=== PATIENT | male | born 1950 | race Caucasian/White ===

== ENCOUNTER 2019-03-06 18:55 | Inpatient (IN) | payer MEDICARE ==
[2019-03-07] MEDS: Multivitamin w/ Minerals Tab PO SCH (09:07)
[2019-03-07] MEDS ORDERED: Magnesium Hydroxide (MOM) 30 mL UDC PO PRN (14:02)
[2019-03-07] MEDS ORDERED: Permethrin 1% Rinse 60 mL Bottle TP ONE (14:54)
[2019-03-07] MEDS: Silver Antimicrobial Wound Gel 0.25 oz Tube TP SCH (17:30)
[2019-03-07] MEDS: Non-Formulary Item 1 EA (Fluticasone/Salmeterol [Advair 250-50 Diskus] 1 PUFF) IH SCH (18:00)
[2019-03-07] MEDS: Calcium Carb/Vit D 500 mg/200 U Tab PO SCH (18:00)
--- NOTE | 2019-03-08 08:45 | History and Physical ---
History of Present Illness - HPI Chief Complaint: Patient had increase in agitation. HPI: Patient was send fron SNF to evaluation due to increased in agitation. Vital Signs: Last Vital Signs Temp 97.7 F 03/08/19 06:10 Pulse 95 03/08/19 06:10 Resp 20 03/08/19 06:10 BP 125/72 03/08/19 06:10 Pulse Ox 99 03/08/19 06:10 Past Medical History Cardiovascular: Report: CAD Pulmonary: Report: No Pertinent Hx EXERCISE SCIENTIST: Report: No Pertinent Hx GI: Report: No Pertinent Hx Psych: Report: Psychosis, Schizophrenia Musculoskeletal: Report: Weakness, Other (Patient has Hx of femur fracture) Rheumatologic: Report: No pertinent Hx Infectious Disease: Report: No Pertinent Hx Renal/: Report: No Pertinent Hx Endocrine: Report: No Pertinent Hx Dermatology: Report: No Pertinent Hx - Past Surgical History Past Surgical History: Other (There is Hx of hip surgery repair.) Family Medical History - Family Member Mother History Unknown: Yes Social History Smoke: No Alcohol: None Drugs: None Lives: Shelter Domestic Violence: Negative - Medications Home Medications: Home Medication Medication Instructions Recorded Type Acetaminophen [Tylenol] 650 mg PO Q4HR PRN 03/07/19 History Acetaminophen [Tylenol] 650 mg PO Q4HR PRN 03/07/19 History Ascorbic Acid [Vitamin C] 500 mg PO BID 03/07/19 History Calcium Carb/Vit D 500mg/200U 500 mg PO BID 03/07/19 History [Oscal w/Vitamin D] Docusate Sodium [Colace] 100 mg PO DAILY 03/07/19 History Fluticasone/Salmeterol [Advair 1 puff IH BID 03/07/19 History 250-50 Diskus] Ibuprofen 600 mg PO Q6HR PRN 03/07/19 History Magnesium Hydroxide [Milk of 30 ml PO DAILY PRN 03/07/19 History Magnesia] Risperidone [Risperdal] 1 mg PO Q12HR 03/07/19 History - Allergies Allergies/Adverse Reactions: Allergies Allergy/AdvReac Type Severity Reaction Status Date / Time No Known Allergies Allergy Unverified 03/07/19 03:23 Review of Systems - Review of Systems Constitutional: Report: No Significant Eyes: Report: No Significant ENT: Report: No Significant Respiratory: Report: No Significant Cardiovascular: Report: No Significant Gastrointestinal: Report: No Significant Genitourinary: Report: No Significant Musculoskeletal: Report: Leg Pain Skin: Report: No Significant Neurological: Report: Weakness Physical Exam - Physical Exam HEENT: Report: Ears Nose Throat within normal limits Neck: Report: Within normal limits Cardiovascular Systems: Report: Regular, Rate and Rhythm Respiratory: Report: Breath Sounds are within normal limits Abdomen: Report: Non-tender to palpation Back: Report: Inspection of back is within normal limits. Extremities: Report: Non-tender to palpation., Other (Unstable gait) Skin: Report: Color of skin is within normal limits Neuro/Psych: Report: Disoriented to name time or place - Assessment Assessment: Patient is awake, alert, calm confused, in no acute distress. Dx Psychosis, S/ P hip surgery repair. - Plan Plan: Patient is follow by Psychiatry, he is continue with home meds, Labs are requested.
[2019-03-08] MEDS: Multivitamin w/ Minerals Tab PO SCH (09:28)
[2019-03-08] MEDS: Calcium Carb/Vit D 500 mg/200 U Tab PO SCH ×2 (09:29→17:49)
[2019-03-08] MEDS: Silver Antimicrobial Wound Gel 0.25 oz Tube TP SCH (09:30)
[2019-03-08] MEDS: Non-Formulary Item 1 EA (Fluticasone/Salmeterol [Advair 250-50 Diskus] 1 PUFF) IH SCH ×2 (10:00→17:49)
--- NOTE | 2019-03-08 10:13 | Psychiatric Evaluation ---
DATE OF SERVICE: 03/07/2019 IDENTIFYING DATA: The patient is a 68-year-old male, resident of [facility] in [place]. Information obtained by directly interviewing the patient as well as reviewing the admission papers. The patient is admitted for his acute agitation and paranoid delusions. The patient is reported to have been very aggressive. I have reviewed the chart and spoke to the staff and interviewed the patient. During the interview, the patient is screaming and yelling at the staff nurse. The patient has no insight. The patient is going on a tangent. The patient has not been able to provide much of any information. The patient has been verbally aggressive earlier and has been given a dose of Risperdal. PAST PSYCHIATRIC HISTORY: The patient is being followed by Dr. Barrett on an outpatient basis. MEDICAL HISTORY AND PHYSICAL EXAMINATION: Requested by Dr. Delgado and is significant for left hip fracture and the patient has COPD, hypertension, history of encephalopathy and schizophrenia. Gait is noted to be abnormal and the patient has been wheelchair bound at this time. SUBSTANCE ABUSE HISTORY: Details about substance abuse history are not known. SOCIAL HISTORY: The patient is a resident of the [facility] in [place]. The patient is stating that he does not have any family members. STRENGTH AND ASSETS: The patient is motivated. MENTAL STATUS EXAMINATION: The patient is a 68-year-old, looking his stated age, superficially cooperative. The patient is getting easily irritable and angry during the interview. Insight and judgment at this time are noted to be still impaired. Impulse control is noted to be limited. Coping skills are noted to be limited. The patient has paranoia, but denies any command hallucinations. The patient goes on a tangent talks about an injection that lasted for 1 year and feels that lasted for 3 years. The patient is not making much sense. The patient is alert and aware that he is in the hospital. Attention span and concentration are noted to be poor. DIAGNOSTIC IMPRESSION: AXIS I: The patient's behavior is a danger to others. The patient is reported to have been agitated, screaming and yelling at the staff members. The patient's short and long-term memory noted to be very poor. DIAGNOSTIC IMPRESSION: AXIS I: Schizophrenia, chronic paranoid type with acute exacerbation. AXIS II: None. AXIS III: As per Dr. Delgado. IMMEDIATE TREATMENT PLAN: The patient is going to be continued on the Risperdal as 1 mg b.i.d. and the patient is also going to be placed on the Trileptal for his mood swings and the patient is going to be followed up with the supportive therapy. JOB# [id number]
--- NOTE | 2019-03-09 04:08 | Progress Notes ---
DATE: 03/08/2019 PSYCHIATRIC PROGRESS NOTE SUBJECTIVE: Staff was spoken to. The patient is interviewed. The patient continues to be dysphoric. Insight and judgment are noted to be still impaired. Impulse control is noted to be limited. Coping skills are noted to be limited. The patient is getting easily irritable. No side effects to the medications are noted. The patient is currently on oxcarbazepine 150 mg twice a day along with risperidone 1 mg twice a day. Continues to be very paranoid. The patient has no insight into his illness. The patient is getting easily frustrated with the staff members. ASSESSMENT: The patient is still grossly psychotic and impulsive. PLAN: To increase the dose on the Risperdal to 2 mg twice a day and follow the patient with the supportive therapy. JOB# [id number]
[2019-03-09] MEDS: Calcium Carb/Vit D 500 mg/200 U Tab PO SCH ×2 (08:05→16:11)
[2019-03-09] MEDS: Multivitamin w/ Minerals Tab PO SCH (08:06)
[2019-03-09] MEDS: Silver Antimicrobial Wound Gel 0.25 oz Tube TP SCH (08:11)
[2019-03-09] MEDS: Albuterol Nebulizer 2.5mg/3mL HHN SCH ×2 (12:10→18:10)
[2019-03-09] MEDS: Budesonide 0.5 Mg/2 mL Ud HHN SCH ×2 (12:10→18:10)
[2019-03-10] MEDS: Albuterol Nebulizer 2.5mg/3mL HHN SCH ×4 (00:10→18:56)
[2019-03-10] MEDS: Budesonide 0.5 Mg/2 mL Ud HHN SCH ×4 (00:10→18:56)
--- NOTE | 2019-03-10 01:09 | Progress Notes ---
DATE: 03/09/2019 PSYCHIATRIC PROGRESS NOTE SUBJECTIVE: Staff was spoken to. The patient is interviewed. Mood is noted to be irritable. Affect is constricted. The patient continues to be paranoid. Insight and judgment are noted to be still impaired. Impulse control seems to be limited. No side effects to the medications are noted. The patient has been able to tolerate the medication so far. Aggressive behavior seems to be coming under control. ASSESSMENT: The patient is still paranoid. PLAN: To continue the patient with the current medications and followup. JOB# [id number]
[2019-03-10] MEDS: Multivitamin w/ Minerals Tab PO SCH (08:39)
[2019-03-10] MEDS: Calcium Carb/Vit D 500 mg/200 U Tab PO SCH ×2 (08:39→16:42)
[2019-03-10] MEDS: Silver Antimicrobial Wound Gel 0.25 oz Tube TP SCH (09:50)
--- NOTE | 2019-03-10 20:41 | Consultation ---
DATE OF CONSULTATION: 03/09/2019 REFERRING PHYSICIAN: Aedlita Ibarra MD TYPE OF CONSULTATION: Psychology. HISTORY OF PRESENT ILLNESS: The patient is a 68-year-old male. The following is by review of the medical record and by the patient's self report. The patient is a resident of an [facility] in [place]. The patient is being admitted due to acute agitation and paranoid delusions. The staff at the patient's facility report that he has been very aggressive with screaming and yelling episodes at the staff. Upon interview, the patient is going off on a tangent and very difficult to cognitively redirect as well as difficult to deescalate. The patient is presenting as verbally aggressive. The patient provided limited answers to questions for the rest of this initial clinical interview. PAST MEDICAL HISTORY: Please see history and physical by Dr. Delgado. PAST PSYCHIATRIC HISTORY: The patient is under the care of Dr. Esteban Barrett at his facility. The patient has a history of aggressive behavior as well as schizophrenia. The patient has had multiple previous hospitalizations. It is unknown if the patient is also under the care of a psychologist. SUBSTANCE ABUSE HISTORY: Details are unknown. The patient did not answer these questions. Records do not indicate a substance abuse history; however, this needs further evaluation. PSYCHOSOCIAL HISTORY: The patient is a resident of an [facility] in [place]. The patient states he has no support and no family members that he can contact. The patient states he is single with no children. The patient states he has a friend named Que that is involved in his care. The patient admits that he has a history of homelessness as well. He did not answer questions about occupational or educational history or [employer] affiliation. The patient did not answer the question if he desires to return to his previous placement. MENTAL STATUS EXAMINATION: The patient appears to be his stated age. The patient's attitude is guarded and suspicious and mostly uncooperative. Speech is loud. The patient's eye contact is poor. Mood is irritable and angry. Affect is mood reactive and constricted. The patient is getting easily irritated answering the clinical interview questions. The patient denied any suicidal ideation, plan or intention. He denied any command hallucinations, i.e. any auditory hallucinations. The patient is markedly tangential and is difficult to cognitively redirect. The patient is not making much sense at times. There is evidence of possible paranoid ideation, this needs further evaluation. The patient's behavior is easily agitated and impulsive. Impulse control is inadequate. The patient did not participate in the memory assessment. It appears the patient's immediate and short term memory are impaired. Long-term memory needs further evaluation. The patient was not responding to the clinical questions at this point. The patient did not participate in interpretation of proverbs. Sensorium is alert and oriented to self and place only. Concentration is poor. The patient was unable to be cognitively redirected and was unable to sustain focus and attention. The patient appears to possibly be a danger to others. The patient continues to have yelling episodes on the unit according to the staff. The patient's insight is impaired. Judgment is impaired. DIAGNOSTIC IMPRESSION AXIS I: History of schizophrenia, chronic, paranoid type, with acute exacerbation. AXIS II: None. AXIS III: Per Dr. Delgado. TREATMENT PLAN: The patient has been seen by Dr. Ibarra for psychiatric evaluation and for the management of the patient's psychotropic medications. We will provide supportive psychotherapy to include reality orientation, reality differentiation and reality integration. We will provide de-escalation to reduce the patient's agitation and increase the patient's impulse control. We will provide motivational enhancement for the patient to verbalize his concerns versus verbally acting out and behaviorally acting out. The patient appears to be having some mood swings. We will provide the patient the opportunity to verbally contract for safety and to follow through with staff direction. We will provide coping strategies for chronic severe mental illness as well as for phase of life issues. DISCHARGE CRITERIA: When the patient no longer a threat to others and is compliant with his medication and care plan. Thank you, Dr. Ibarra for this consult and the opportunity to participate in this patient's care. JOB# [id number] FIFI
--- NOTE | 2019-03-10 21:20 | Progress Notes ---
DATE: 03/10/2019 PSYCHIATRIC PROGRESS NOTE SUBJECTIVE: Staff was spoken to. The patient is interviewed. Mood is noted to be less irritable compared to the time that he came in. Insight and judgment are noted to be still impaired. The patient's mood swings are coming under control. The patient is currently on Risperdal and oxcarbazepine and has been able to tolerate the medications. No side effects to the medications are noted so far. ASSESSMENT: The patient is still impulsive and psychosis, but the aggressive behavior seems to be coming under control. PLAN: To continue the patient with the supportive therapy and followup. JOB# [id number]
[2019-03-11] MEDS: Albuterol Nebulizer 2.5mg/3mL HHN SCH ×4 (00:38→17:06)
[2019-03-11] MEDS: Budesonide 0.5 Mg/2 mL Ud HHN SCH ×4 (00:38→17:06)
[2019-03-11] MEDS: Calcium Carb/Vit D 500 mg/200 U Tab PO SCH ×2 (08:57→16:28)
[2019-03-11] MEDS: Multivitamin w/ Minerals Tab PO SCH (08:57)
[2019-03-11] MEDS: Silver Antimicrobial Wound Gel 0.25 oz Tube TP SCH ×2 (09:02→12:49)
--- NOTE | 2019-03-11 15:29 | Progress Notes ---
DATE: 03/11/2019 PSYCHIATRIC PROGRESS NOTE SUBJECTIVE: Staff was spoken to. The patient is interviewed. Mood is noted to be irritable. Affect is constricted. Mood swings are still a problem. Insight and judgment are noted to be still impaired. The patient has been able to ambulate, but the patient compared to the beginning of the paranoia is coming down, but the patient is still having outbursts. No side effects to the medications are noted at this time. The patient is able to tolerate the Trileptal and the Risperdal. ASSESSMENT: The patient is still psychotic and impulsive. PLAN: To continue the patient with the supportive therapy and followup. JOB# [id number]
[2019-03-12] MEDS: Albuterol Nebulizer 2.5mg/3mL HHN SCH ×4 (00:20→17:01)
[2019-03-12] MEDS: Budesonide 0.5 Mg/2 mL Ud HHN SCH ×4 (00:20→17:01)
[2019-03-12] MEDS: Silver Antimicrobial Wound Gel 0.25 oz Tube TP SCH (08:01)
[2019-03-12] MEDS: Calcium Carb/Vit D 500 mg/200 U Tab PO SCH ×2 (08:02→16:20)
[2019-03-12] MEDS: Multivitamin w/ Minerals Tab PO SCH (08:02)
[2019-03-12 16:08] VITALS: BP 139/88
[2019-03-13] MEDS: Budesonide 0.5 Mg/2 mL Ud HHN SCH ×4 (01:00→17:35)
[2019-03-13] MEDS: Albuterol Nebulizer 2.5mg/3mL HHN SCH ×4 (01:00→17:35)
--- NOTE | 2019-03-13 01:24 | Progress Notes ---
DATE: 03/12/2019 PSYCHOLOGY PROGRESS NOTE SUBJECTIVE: The patient is seen up in his wheelchair in his room. Chart is reviewed. Case is discussed with staff. The patient presents as irritable. Staff reports the patient continues to have mood swings and verbal aggressive outbursts. The patient also continues to verbalize suspiciousness. OBJECTIVE: Mood is irritable. Affect is constricted. Thought process includes possible paranoid ideation. The patient denies any hallucinations or delusions. The patient's behavior includes intermittent verbal anger outbursts and is guarded and suspicious. ASSESSMENT AND PLAN: The patient's psychosis and impulsivity persist. The patient is compliant with his medication. PLAN: We will continue supportive psychotherapy. The patient is continued on Trileptal and Risperdal according to the attending psychiatrist. We will provide de-escalation and encourage the patient to calmly verbalize his concerns and demonstrate appropriate behavior. We will provide conflict resolution and brief solution focused therapy for the patient to be able to increase his problem solving ability and become compliant and stay compliant with his care and treatment. We will provide reality testing, orientation and integration. We will provide coping strategies for phase of life issues as well chronic severe mental illness. We will follow up in 2-3 days to continue the present treatment if the patient remains admitted on the unit and is able to demonstrate the capacity to benefit from Psychology Services. JOB# [id number] FIFI
--- NOTE | 2019-03-13 01:37 | Progress Notes ---
DATE: 03/12/2019 PSYCHIATRIC PROGRESS NOTE SUBJECTIVE: Staff was spoken to. The patient is interviewed. Mood is noted to be less irritable compared to the time that he came in. Insight and judgment at this time are noted to be still impaired. Impulse control seems to be improving. No side effects to the medications are noted. The patient at this time has no family contact. The ed case manager has been trying to touch base with extended care facility for further disposition issues. PLAN: Please note that the patient is still having problems with the placement, closely monitor the patient for psychosis and followup. JOB# [id number]
[2019-03-13] MEDS: Multivitamin w/ Minerals Tab PO SCH (08:44)
[2019-03-13] MEDS: Calcium Carb/Vit D 500 mg/200 U Tab PO SCH ×2 (08:44→17:35)
[2019-03-13] MEDS: Silver Antimicrobial Wound Gel 0.25 oz Tube TP SCH (09:10)
--- NOTE | 2019-03-13 23:42 | Progress Notes ---
DATE: 03/13/2019 SUBJECTIVE: Staff was spoken to. The patient is interviewed. Chart is reviewed. The patient continues to be very agitated and has been using lot of profanities. There have been acute mood swings. Insight and judgment are noted to be very much impaired. Impulse control is noted to be limited. The patient is currently on Trileptal and Risperdal. PLAN: To increase the dose on the Trileptal to 300 mg twice a day and continue the Risperdal 2 mg twice a day and followup. JOB# [id number]
[2019-03-14] MEDS: Budesonide 0.5 Mg/2 mL Ud HHN SCH ×4 (00:30→18:00)
[2019-03-14] MEDS: Albuterol Nebulizer 2.5mg/3mL HHN SCH ×4 (00:30→18:00)
[2019-03-14] MEDS: Calcium Carb/Vit D 500 mg/200 U Tab PO SCH ×2 (08:44→17:11)
[2019-03-14] MEDS: Multivitamin w/ Minerals Tab PO SCH (08:45)
[2019-03-14] MEDS: Silver Antimicrobial Wound Gel 0.25 oz Tube TP SCH (08:49)
[2019-03-15] MEDS: Albuterol Nebulizer 2.5mg/3mL HHN SCH ×4 (00:09→18:20)
[2019-03-15] MEDS: Budesonide 0.5 Mg/2 mL Ud HHN SCH ×4 (00:10→18:13)
[2019-03-15] MEDS: Calcium Carb/Vit D 500 mg/200 U Tab PO SCH ×2 (08:12→16:25)
[2019-03-15] MEDS: Multivitamin w/ Minerals Tab PO SCH (08:12)
--- NOTE | 2019-03-15 09:50 | Progress Notes ---
DATE: 03/14/2019 PSYCHIATRIC PROGRESS NOTE SUBJECTIVE: Staff was spoken to. The patient is interviewed. Mood is noted to be irritable. Affect is constricted. Insight and judgment at this time are noted to be still impaired. Insight and judgment are noted to be improving. Impulse control seems to be fair. The patient's aggressive behavior has been coming down. The patient has been able to tolerate the medications. No side effects to the medications are noted. The patient is motivated to seek treatment. ASSESSMENT: The patient is stabilizing. PLAN: To continue the patient with the current medications and possibly discharge the patient to the placement tomorrow. JOB# [id number]
--- NOTE | 2019-03-15 09:57 | Progress Notes ---
DATE: 03/15/2019 PSYCHIATRIC PROGRESS NOTE SUBJECTIVE: Staff was spoken to. The patient is interviewed. Mood is noted to be anxious. The patient is stating that the human services case manager has spoken to him, someone came to visit and he states that another lady is going over there once they accept his case. The patient at this time is willing to comply with the treatment. No side effects to the medications are noted. The patient is less aggressive. Insight and judgment at this time are noted to be improving. Impulse control seems to be improving at this time. No side effects to the medications are noted. ASSESSMENT: The patient is stabilizing. PLAN: Plan to see if we can discharge the patient to the correction facility tomorrow. JOB# [id number]
--- NOTE | 2019-03-15 12:23 | Progress Notes ---
DATE: 03/14/2019 PSYCHOLOGY PROGRESS NOTE SUBJECTIVE: The patient is seen in the dining and activity area. The patient is undergoing his O2 treatment. Staff reports the patient has been compliant with his medication and has had no recent verbal outbursts. The patient seems to be more redirectable. The patient's insight is still poor with respect to his illness, but his aggressive behavior has been lessening. OBJECTIVE: Mood is mildly irritable. Mood swings are lessening. Affect is reactive. Thought process shows to be guarded, but generally goal oriented. The patient has a tendency to become tangential, but is cognitively redirectable at times. The patient denied any hallucinations or delusions. The patient's behavior is more goal oriented. ASSESSMENT: The patient seems to be stabilizing as of this visit and according to staff. PLAN: We provided coping strategies for phase of life issues. We provided positive reinforcement for the patient's compliance with his care and treatment. We provided remotivation for the patient to continue responding to staff direction as well as complying with treatment suggestions and recommendations. We will follow up in 2-3 days if the patient is still admitted on the unit. JOB# [id number] FIFI
[2019-03-15] MEDS: Silver Antimicrobial Wound Gel 0.25 oz Tube TP SCH (16:20)
[2019-03-16] MEDS: Albuterol Nebulizer 2.5mg/3mL HHN SCH ×2 (00:06→05:12)
[2019-03-16] MEDS: Budesonide 0.5 Mg/2 mL Ud HHN SCH ×2 (00:27→05:37)
[2019-03-16] MEDS: Multivitamin w/ Minerals Tab PO SCH (08:11)
[2019-03-16] MEDS: Calcium Carb/Vit D 500 mg/200 U Tab PO SCH ×2 (08:11→16:07)
[2019-03-16] MEDS: Silver Antimicrobial Wound Gel 0.25 oz Tube TP SCH (08:12)
[2019-03-16] MEDS ORDERED: Albuterol Nebulizer 2.5mg/3mL HHN SCH (13:00)
[2019-03-16] MEDS ORDERED: Budesonide 0.5 Mg/2 mL Ud HHN SCH (13:15)
--- NOTE | 2019-03-16 18:17 | Discharge Summary ---
DATE OF DISCHARGE: 03/16/2019 IDENTIFYING DATA: The patient is a 68-year-old male, resident of an [facility] in [place]. Information obtained by directly interviewing the patient as well as reviewing the admission papers. JUSTIFICATION OF HOSPITALIZATION: The patient is admitted for acute agitation and paranoid delusions and aggressive behavior. CHIEF COMPLAINT: "I don't need to talk to anyone, you know the story." HISTORY OF PRESENT ILLNESS: This is the first psychiatric hospitalization to [facility] for this patient who is reported to have been a resident of [facility]. The patient is reported to have been very aggressive and has been making sexual comments and also has been very intrusive. The patient could not be contained at a lower level of care and the patient has to be brought over here for stabilization. Physical examination done at the time of admission was requested to be done by Dr. Esposito, that is noted to be significant for COPD, hypertension, and history of encephalopathy. HOSPITAL COURSE AND RESPONSE TO TREATMENT: The patient has been observed on inpatient unit, provided with supportive psychotherapy. The patient has been placed on routine p.r.n. doses of medications along with that one he has been given the oxcarbazepine that was gradually increased to 300 mg twice a day. Risperdal was given 2 mg twice a day. With these medications, the patient was observed and was noted to be doing fairly well and hence the patient was finally discharged to be followed up on an outpatient basis. MENTAL STATUS EXAMINATION AT THE TIME OF DISCHARGE: Noted to be stable. The patient is not suicidal or homicidal. Insight and judgment are noted to be improving. Impulse control seems to be fair. No side effects to the medications are noted at the time of discharge. CONDITION AT THE TIME OF DISCHARGE: Noted to be stable. DIAGNOSES AT THE TIME OF DISCHARGE: AXIS I: Schizophrenia, chronic, paranoid type. AXIS II: None. AXIS III: As per Dr. Delgado. AFTERCARE PLAN: The patient is discharged to the [facility] for further followup. JOB# [id number]
--- NOTE | 2019-03-17 10:01 | Progress Notes ---
DATE: 03/16/2019 PSYCHOLOGY PROGRESS NOTE SUBJECTIVE: The patient is seen in the activity room. The patient is discharging today. The patient was admitted originally for agitation and paranoid delusions as well as aggressive behavior. The patient states that he feels better and is looking forward to returning to his placement. The patient is placed at an [facility] in [place]. Staff reported that the patient had been aggressive in the past as well as making sexual comments and being intrusive. Staff reports no recent episodes of these past behaviors. The patient has been compliant with his medication. OBJECTIVE: Mood is stabilizing with lessening of mood swings. Affect is mood congruent. Thought process shows to be more goal oriented; however, there is some tangentiality present. The patient denied any hallucinations or delusions. The patient's behavior has been stabilizing and becoming compliant with his care and treatment. The patient denied any suicidal or homicidal ideation, plan or intention. Insight and judgment are improving. Impulsivity seems to be coming under control. ASSESSMENT: The patient is discharging today and seems to have been able to attain some type of baseline behavior as well as compliance with his care and treatment. PLAN: We provided positive reinforcement and remotivation for the patient to stay compliant with all aspects of his care and treatment. We encouraged the patient to verbalize his concerns versus acting out and to be able to interact appropriately with staff and to discuss with staff his concerns and needs at his placement. We provided coping strategies for phase of life issues as well. No followup is indicated as the patient is discharging today. Thank you, Dr. Ibarra and Dr. Barrett for this consult and the opportunity to participate with you in this patient's care. [facility]# [id number] [facility]
== END 2019-03-16 16:20 | DRG 885 ==
LOC: GERO 03-07 02:45
PROVIDERS: ADMIT Psychiatry & Neurology Psychiatry; ATTEND Psychiatry & Neurology Psychiatry
DX: F20.0 Paranoid schizophrenia (principal); J44.9 Chronic obstructive pulmonary disease, unspecified; I10 Essential (primary) hypertension; I25.10 Atherosclerotic heart disease of native coronary artery without angina pectoris
CPT/HCPCS: 83036-90; G0410; J7613; Z7610